=== PATIENT | male | born 1975 | race Caucasian/White ===

== ENCOUNTER 2017-02-11 15:20 | Emergency (ER) | payer SELFPAY ==
[2017-02-11 15:42] LABS: BASOPHILS 0.5 % (0-2); EOSINOPHILS 1.5 % (0-7); HEMOGLOBIN 17.4 g/dL (13.5-17.5); IMMATURE GRANULOCYTES 0.9 % (0-5); LYMPHOCYTES 42.5 % (15-50); MCH 31.3 pg (26.0-34.0); MCHC 34.1 g/dL (31.0-37.0); MCV 91.7 fL (80.0-100.0); MEAN PLATELET VOLUME 10.3 fL (7.4-10.4); MONOCYTES 4.3 % (2-11); NEUTROPHILS 50.3 % (40-80); PLATELET COUNT 261 10x3/uL (130-400); RBC 5.56 10x6/uL (4.20-6.10); RDW 12.3 % (11.5-14.5); WBC 10.8 10x3/uL (4.8-10.8)
[2017-02-11 15:59] LABS: ALBUMIN 4.5 g/dL (3.4-5.0); ANION GAP 17.9 mmol/L (8-16); BILIRUBIN - TOTAL 0.49 mg/dL (0.2-1.3); CALCIUM 9.6 mg/dL (8.5-10.1); CARBON DIOXIDE 26.8 mmol/L (21.0-32.0); CREATININE - SERUM 1.5 mg/dL (0.6-1.3); POTASSIUM - SERUM 3.7 mmol/L (3.5-5.1); PROTEIN - SERUM 8.5 g/dL (6.4-8.2)
[2017-02-11 16:27] LABS: APTT 27.9 SECONDS (22.8-39.4); INR 0.97 (0.85-1.17); PROTIME 12.8 SECONDS (11.6-15.0)
== END 2017-02-11 20:47 | disposition other institution (70) ==
LOC: D.ER 15:20
PROVIDERS: Emergency Medicine
DX: S22.41XA Multiple fractures of ribs, right side, initial encounter for closed fracture (principal); V89.2XXA Person injured in unspecified motor-vehicle accident, traffic, initial encounter; Y93.89 Activity, other specified; Y92.410 Unspecified street and highway as the place of occurrence of the external cause; S27.329A Contusion of lung, unspecified, initial encounter; J93.9 Pneumothorax, unspecified; S22.059A Unspecified fracture of T5-T6 vertebra, initial encounter for closed fracture; S82.891A Other fracture of right lower leg, initial encounter for closed fracture; S36.112A Contusion of liver, initial encounter